=== PATIENT | female | born 1995 | race Caucasian/White ===

== ENCOUNTER 2020-01-03 22:55 | Emergency (ER) | payer OTHER, MEDICAID ==
[~2020-01-03] VITALS: Ht 160 cm; Wt 86.2 kg
[~2020-01-03 22:55] MED LIST: PRENATAL PO
[2020-01-03] MEDS ORDERED: LABETALOL HCL100 MG PO (23:26)
[2020-01-03] MEDS ORDERED: BACTRIM DS TAB1 EACH PO (23:26)
[2020-01-04] MEDS ORDERED: LABETALOL HCL100 MG PO (00:13)
[2020-01-04 00:43] VITALS: BP 146/98
== END 2020-01-04 00:44 | disposition home or self-care (01) ==
LOC: M.ERS 22:55
DX: O16.5 Unspecified maternal hypertension, complicating the puerperium (principal); S31.104A Unspecified open wound of abdominal wall, left lower quadrant without penetration into peritoneal cavity, initial encounter; S31.103A Unspecified open wound of abdominal wall, right lower quadrant without penetration into peritoneal cavity, initial encounter; L08.9 Local infection of the skin and subcutaneous tissue, unspecified; Z98.890 Other specified postprocedural states; X58.XXXA Exposure to other specified factors, initial encounter; Y93.9 Activity, unspecified; Y92.89 Other specified places as the place of occurrence of the external cause; Y99.8 Other external cause status

== ENCOUNTER 2020-02-18 01:23 | Emergency (ER) | payer OTHER, MEDICAID ==
[~2020-02-18] VITALS: Ht 160 cm; Wt 77.1 kg
[~2020-02-18 01:23] MED LIST changes: +BACTRIM DS TAB1 EACH PO; +LABETALOL HCL100 MG PO
[2020-02-18 01:31] VITALS: BP 147/95
== END 2020-02-18 02:27 | disposition left against medical advice (07) ==
LOC: M.ERS 01:23
DX: M25.461 Effusion, right knee (principal); I10 Essential (primary) hypertension; F12.90 Cannabis use, unspecified, uncomplicated; Z98.890 Other specified postprocedural states; W17.89XA Other fall from one level to another, initial encounter; Y93.39 Activity, other involving climbing, rappelling and jumping off; Y92.89 Other specified places as the place of occurrence of the external cause; Y99.9 Unspecified external cause status

== ENCOUNTER 2020-05-05 21:46 | Emergency (ER) | payer OTHER, MEDICAID ==
[~2020-05-05] VITALS: Ht 162.6 cm; Wt 81.7 kg
[2020-05-05] MEDS ORDERED: PROZAC20 M1 PO (22:06)
[2020-05-05] MEDS ORDERED: THYROID (22:06)
[2020-05-05] MEDS ORDERED: HYDROXYZINE HCL25 M2 PO (22:09)
[2020-05-05] MEDS ORDERED: PROAIR HFA8.5 GM INH (22:09)
[2020-05-05] MEDS ORDERED: PREDNISONE50 MG PO (22:09)
[2020-05-05 22:14] VITALS: BP 142/104
== END 2020-05-05 22:15 | disposition home or self-care (01) ==
LOC: M.ERS 21:46
DX: R05 Cough (principal); I10 Essential (primary) hypertension; Z98.890 Other specified postprocedural states; Z79.899 Other long term (current) drug therapy